=== PATIENT | male | born 1965 | race African-American/Black ===

== ENCOUNTER 2018-10-10 19:34 | Emergency (ER) | payer OTHER ==
--- NOTE | 2018-10-10 21:14 | ER Document Report ---
ED Medical Screen (RME) - General Chief Complaint: Heat Exposure Stated Complaint: SYNCOPE Time Seen by Provider: 10/10/18 21:05 Mode of Arrival: Wheelchair Information source: Patient Notes: 53-year-old male presented to ED after he passed out at work. states that he called her about 545 states that he really felt bad that he she needed to come pick him up. She states about 620 boss called and told her that the patient passed out he was extremely sweaty and shaking with his eyes rolled back up in his head. She states she went over and got him and brought him to the emergency room. She states about a month or so ago he did a similar thing except for he did not pass out he just had a limp vacantly at the loss in the bus did not know what was going on and then he cleared up. Patient is alert oriented respirations regular and unlabored speaking in full sentences. I did consult Dr. Barber stated patient needed labs x-rays EKG and he would be seen by a provider in the back. I have greeted and performed a rapid initial assessment of this patient. A comprehensive ED assessment and evaluation of the patient, analysis of test results and completion of medical decision making process will be conducted by an additional ED providers. Dictation of this chart was performed using voice recognition software; therefore, there may be some unintended grammatical errors. TRAVEL OUTSIDE OF THE [place] IN LAST 30 DAYS: No - Related Data Allergies/Adverse Reactions: No Known Allergies Allergy (Unverified 10/10/18 21:01) Past Medical History - Social History Family history: CVA, DM, Hypertension - Past Medical History Cardiac Medical History: Reports: Hx Hypertension Renal/ Medical History: Denies: Hx Peritoneal Dialysis GI Medical History: Reports: Hx Diverticulitis Physical Exam - Vital signs Vitals: Temp Pulse Resp BP Pulse Ox 98.3 F 97 20 155/99 H 95 10/10/18 19:44 10/10/18 19:44 10/10/18 19:44 10/10/18 19:44 10/10/18 19:44 Course - Vital Signs Vital signs: Temp Pulse Resp BP Pulse Ox 98.3 F 97 20 155/99 H 95 10/10/18 19:44 10/10/18 19:44 10/10/18 19:44 10/10/18 19:44 10/10/18 19:44
[2018-10-10 21:31] LABS: APPEARANCE,URINE CLEAR; BILIRUBIN,URINE NEGATIVE (NEGATIVE); COLOR,URINE YELLOW; GLUCOSE, URINE >=500 mg/dL (NEGATIVE); KETONES,URINE TRACE mg/dL (NEGATIVE); LEUKOCYTE ESTERASE,URINE NEGATIVE (NEGATIVE); NITRITE,URINE NEGATIVE (NEGATIVE); PROTEIN,URINE 30 mg/dL (NEGATIVE); URINE SPECIFIC GRAVITY 1.022; UROBILINOGEN,URINE NEGATIVE mg/dL (<2.0)
--- NOTE | 2018-10-10 22:05 | RADIOLOGY REPORT (SQ) ---
EXAM DESCRIPTION: [facility]: XR CHEST 2 VIEWS Views: 2 CLINICAL HISTORY: 53 years Male, syncope episode COMPARISON: 12/06/2015 FINDINGS: The lungs are clear. No pneumothorax or significant pleural effusion. Cardiomediastinal silhouette is within normal limits. Bony structures are unremarkable for age. IMPRESSION: 1. No acute cardiothoracic abnormality.
[2018-10-10 23:45] LABS: ABSOLUTE BASOPHILS # (AUTO) 0.1 10^3/uL (0.0-0.2); ABSOLUTE EOSINOPHILS # (AUTO) 0.1 10^3/uL (0.0-0.6); ABSOLUTE LYMPHOCYTES (AUTO) 1.6 10^3/uL (0.5-4.7); ABSOLUTE MONOCYTES (AUTO) 0.6 10^3/uL (0.1-1.4); EOSINOPHILS % (AUTO) 0.5 % (0-6); HEMATOCRIT 46.7 % (37.9-51.0); HEMOGLOBIN 14.9 g/dL (13.5-17.0); MEAN CORPUSCULAR HEMOGLOBIN 25.9 pg (27.0-33.4); MEAN CORPUSCULAR VOLUME 81 fl (80-97); MONOCYTES % (AUTO) 5.4 % (3-13); PLATELET COUNT 240 10^3/uL (150-450); RED BLOOD COUNT 5.77 10^6/uL (4.35-5.55); RED CELL DISTRIBUTION WIDTH 13.3 % (11.5-14.0); SEGMENTED NEUTROPHILS % (AUTO) 79.1 % (42-78); TOTAL CELLS COUNTED % (AUTO) 100 %; WHITE BLOOD COUNT 11.4 10^3/uL (4.0-10.5)
[2018-10-11 00:03] LABS: ALANINE AMINOTRANSFERASE 19 U/L (21-72); ALKALINE PHOSPHATASE 119 U/L (38-126); ANION GAP 13 (5-19); ASPARTATE AMINO TRANSFERASE 15 U/L (17-59); BILIRUBIN,DIRECT 0.3 mg/dL (0.0-0.4); BILIRUBIN,TOTAL 0.6 mg/dL (0.2-1.3); BLOOD UREA NITROGEN 19 mg/dL (7-20); CALCIUM 9.3 mg/dL (8.4-10.2); CARBON DIOXIDE 26 mmol/L (22-30); CHLORIDE 96 mmol/L (98-107); GLUCOSE 327 mg/dL (75-110); POTASSIUM 4.3 mmol/L (3.6-5.0); TOTAL PROTEIN 6.7 g/dL (6.3-8.2)
[2018-10-11 00:17] LABS: CREATINE KINASE MB < 0.22 ng/mL (<4.55); TROPONIN I < 0.012 ng/mL
--- NOTE | 2018-10-11 02:51 | ER Document Report ---
ED General - General Chief Complaint: Heat Exposure Stated Complaint: SYNCOPE Time Seen by Provider: 10/10/18 21:05 Mode of Arrival: Wheelchair Notes: Patient is a 53-year-old male with past medical history of essential hypertension who presents after syncopal episode while at work. 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 States that the fumes made him feel increasingly lightheaded. Contacted his and stated that he did not feel well. States that he tried to sit down and felt progressively worse. States that he stood up to try to walk outside and apparently lost consciousness. Did not sustain any injury during his syncopal episode. Was subsequent brought to the emergency department by his . Patient has had a history of once previous syncopal episode in the past under similar circumstances. At the time of my evaluation he denies any complaints. States that he believes that this was secondary to dehydration and exposure to paint fumes. States that his symptoms have resolved after lying down and drinking plenty of fluid. Denies any chest pain, shortness of breath, focal weakness, numbness or confusion either before or after the episode. Has not seen his primary care physician regarding today's concerns. TRAVEL OUTSIDE OF THE [place] IN LAST 30 DAYS: No - Related Data Allergies/Adverse Reactions: No Known Allergies Allergy (Unverified 10/10/18 21:01) Past Medical History - General Information source: Patient - Social History Smoking Status: Never Smoker Frequency of alcohol use: None Drug Abuse: None Lives with: Spouse/Significant other Family History: Reviewed & Not Pertinent Patient has suicidal ideation: No Patient has homicidal ideation: No - Past Medical History Cardiac Medical History: Reports: Hx Hypertension Renal/ Medical History: Denies: Hx Peritoneal Dialysis GI Medical History: Reports: Hx Diverticulitis Review of Systems - Review of Systems Notes: Constitutional: Negative for fever. HENT: Negative for sore throat. Eyes: Negative for visual changes. Cardiovascular: Negative for chest pain. Respiratory: Negative for shortness of breath. Gastrointestinal: Negative for abdominal pain, vomiting or diarrhea. Genitourinary: Negative for dysuria. Musculoskeletal: Negative for back pain. Skin: Negative for rash. Neurological: Negative for headaches, weakness or numbness. 10 point ROS negative except as marked above and in HPI. Physical Exam - Vital signs Vitals: Temp Pulse Resp BP Pulse Ox 98.3 F 97 20 155/99 H 95 10/10/18 19:44 10/10/18 19:44 10/10/18 19:44 10/10/18 19:44 10/10/18 19:44 Interpretation: Hypertensive Notes: PHYSICAL EXAMINATION: GENERAL: Well-appearing, well-nourished and in no acute distress. HEAD: Atraumatic, normocephalic. EYES: Pupils equal round and reactive to light, extraocular movements intact, sclera anicteric, conjunctiva are normal. ENT: nares patent, oropharynx clear without exudates. Moist mucous membranes. NECK: Normal range of motion, supple without lymphadenopathy LUNGS: Breath sounds clear to auscultation bilaterally and equal. No wheezes rales or rhonchi. HEART: Regular rate and rhythm without murmurs ABDOMEN: Soft, morbidly obese abdomen, nontender, normoactive bowel sounds. No guarding, no rebound. No masses appreciated. EXTREMITIES: Normal range of motion, no pitting or edema. No cyanosis. NEUROLOGICAL: No focal neurological deficits. Moves all extremities spontaneously and on command. PSYCH: Normal mood, normal affect. SKIN: Warm, Dry, normal turgor, no rashes or lesions noted. Course - Re-evaluation Re-evalutation: 10/11/18 02:49 Presentation of syncope of unclear etiology. Patient was however working in the heat and exposed to paint fumes prior to the onset of his symptoms. Patient normotensive, alert, without focal neurologic deficits at time of arrival. Denies syncope was during exertion. No preceding symptoms of palpitations, chest pain, or shortness of breath. Patient asymptomatic at time of arrival. EKG is without evidence of HCOM, right heart strain, ST changes to suggest ischemia, prolong QTc, delta wave, epsilon wave, or Brugada syndrome. Patient denies any family history of sudden cardiac , personal history of of structural heart disease. Patient denies any symptoms to suggest an acute PE, [place], TAD, SAH, seizure, or acute GI bleed as the etiology of their syncope today. On exam, no murmurs to suggest critical aortic stenosis as possible etiology. Based on overall clinical history, exam findings, vitals, and patients appearance, I feel it is safe for patient to be discharged home at this time with close outpatient follow-up and strict return precautions. Patient is in agreement with this plan, has verbalized indications for return to ED, and questions have been answered. - Vital Signs Vital signs: Temp Pulse Resp BP Pulse Ox 98.5 F 76 18 155/92 H 100 10/11/18 03:10 10/11/18 03:10 10/11/18 03:10 10/11/18 03:10 10/11/18 03:10 - Laboratory Result Diagrams: 10/10/18 23:30 10/10/18 23:30 Laboratory results interpreted by me: 10/10/18 10/10/18 10/10/18 21:08 23:30 23:30 WBC 11.4 H RBC 5.77 H MCH 25.9 L Seg Neutrophils % 79.1 H Absolute Neutrophils 9.0 H Sodium 135.0 L Chloride 96 L Glucose 327 H AST 15 L ALT 19 L Urine Protein 30 H Urine Glucose (UA) >=500 H Urine Ketones TRACE H - Diagnostic Test Radiology reviewed: Image reviewed, Reports reviewed Radiology results interpreted by me: 10/11/18 02:49 Chest x-ray: No acute infiltrate or pneumothorax - EKG Interpretation by Me Additional EKG results interpreted by me: 10/11/18 02:50 Sinus rhythm, rate 94. No ST elevations or depressions. QTC is 441. Discharge - Discharge Clinical Impression: Dehydration Syncope Qualifiers: Syncope type: unspecified Qualified Code(s): R55 - Syncope and collapse Condition: Good Disposition: HOME, SELF-CARE Additional Instructions: You were seen today after an episode of passing out. Your EKG here is normal. At this time, we do not feel that your episode of passing out was from any life-threatening cause. Please drink plenty of fluids over the next several days. Return to emergency department if you have any further episodes of syncope, headache, weakness, numbness, chest pain, or shortness of breath. Please follow up closely with your primary care physician.
[2018-10-11 03:11] VITALS: BP 155/92
--- NOTE | 2018-10-11 22:16 | EKG REPORT ---
SEVERITY:- OTHERWISE NORMAL ECG - SINUS RHYTHM BORDERLINE LEFT AXIS DEVIATION : Confirmed by: Chantel Catherine MD 11-Oct-2018 22:15:14
== END 2018-10-11 03:11 | disposition home or self-care (01) ==
LOC: ER 19:34
DX: R55 Syncope and collapse (principal); E86.0 Dehydration; X30.XXXA Exposure to excessive natural heat, initial encounter; Y93.H9 Activity, other involving exterior property and land maintenance, building and construction; Y99.0 Civilian activity done for income or pay; I10 Essential (primary) hypertension
CPT/HCPCS: 36415; 71046; 80053; 81001; 82553; 84484; 85025; 93005; 93010; 99284

== ENCOUNTER 2019-02-11 15:21 | Emergency (ER) | payer SELFPAY ==
--- NOTE | 2019-02-11 15:41 | ER Document Report ---
ED Medical Screen (RME) - General Chief Complaint: Near Syncope Stated Complaint: DIZZINESS Time Seen by Provider: 02/11/19 15:38 Mode of Arrival: Ambulatory Information source: Patient Notes: Patient presents complaining of an episode of dizziness and not feeling right. Patient states that he sat down and rested his head back and went he opened his eyes he had blurred vision that lasted for about 2 minutes and then resolved. Patient denies any chest pain or shortness of breath. Patient states that he was compliant with taking his blood pressure medication today. Patient states that his doctor is having him monitor his blood sugar and he will see him later this week to determine if he has diabetes. I have greeted and performed a rapid initial assessment of this patient. A comprehensive ED assessment and evaluation of the patient, analysis of test results and completion of the medical decision making process will be conducted by additional ED providers. TRAVEL OUTSIDE OF THE [place] IN LAST 30 DAYS: No - Related Data Allergies/Adverse Reactions: No Known Allergies Allergy (Verified 02/11/19 15:31) Past Medical History - Social History Family history: CVA, DM, Hypertension - Past Medical History Cardiac Medical History: Reports: Hx Hypertension Renal/ Medical History: Denies: Hx Peritoneal Dialysis GI Medical History: Reports: Hx Diverticulitis Physical Exam - Vital signs Vitals: Temp Pulse Resp BP Pulse Ox 98.0 F 84 18 207/93 H 97 02/11/19 15:02/11/19 15:02/11/19 15:02/11/19 15:02/11/19 15:29 - Cardiovascular Rhythm: Regular Heart sounds: S1 appreciated, S2 appreciated Murmur: No Course - Vital Signs Vital signs: Temp Pulse Resp BP Pulse Ox 98.0 F 84 18 207/93 H 97 02/11/19 15:02/11/19 15:29 02/11/19 15:02/11/19 15:02/11/19 15:29
--- NOTE | 2019-02-11 16:12 | RADIOLOGY REPORT (SQ) ---
EXAM DESCRIPTION: CHEST 2 VIEWS COMPLETED DATE/TIME: 02/11/2019 3:58 pm REASON FOR STUDY: dizziness COMPARISON: 10/10/2018, 12/06/2015 EXAM PARAMETERS: NUMBER OF VIEWS: two views TECHNIQUE: Digital Frontal and Lateral radiographic views of the chest acquired. RADIATION DOSE: NA LIMITATIONS: none FINDINGS: LUNGS AND PLEURA: No opacities, masses or pneumothorax. No pleural effusion. MEDIASTINUM AND HILAR STRUCTURES: No masses or contour abnormalities. HEART AND VASCULAR STRUCTURES: Heart normal size. No evidence for failure. BONES: No acute findings. HARDWARE: None in the chest. OTHER: No other significant finding. IMPRESSION: NO ACUTE RADIOGRAPHIC FINDING IN THE CHEST. TECHNICAL DOCUMENTATION: JOB ID: [id number] [employer]- All Rights Reserved Reading location - IP/workstation name: [email or web address]
[2019-02-11 16:56] LABS: ABSOLUTE BASOPHILS # (AUTO) 0.1 10^3/uL (0.0-0.2); ABSOLUTE EOSINOPHILS # (AUTO) 0.2 10^3/uL (0.0-0.6); ABSOLUTE LYMPHOCYTES (AUTO) 1.9 10^3/uL (0.5-4.7); ABSOLUTE MONOCYTES (AUTO) 0.6 10^3/uL (0.1-1.4); ABSOLUTE NEUT (AUTO) 7.1 10^3/uL (1.7-8.2); BASOPHILS % (AUTO) 0.8 % (0-2); EOSINOPHILS % (AUTO) 1.6 % (0-6); HEMATOCRIT 43.2 % (37.9-51.0); HEMOGLOBIN 14.1 g/dL (13.5-17.0); LYMPHOCYTES % (AUTO) 19.3 % (13-45); MEAN CORPUSCULAR HEMOGLOBIN 27.1 pg (27.0-33.4); MEAN CORPUSCULAR HGB CONC 32.7 g/dL (32.0-36.0); MEAN CORPUSCULAR VOLUME 83 fl (80-97); MONOCYTES % (AUTO) 6.5 % (3-13); PLATELET COUNT 231 10^3/uL (150-450); RED BLOOD COUNT 5.21 10^6/uL (4.35-5.55); RED CELL DISTRIBUTION WIDTH 13.4 % (11.5-14.0); SEGMENTED NEUTROPHILS % (AUTO) 71.8 % (42-78); TOTAL CELLS COUNTED % (AUTO) 100 %; WHITE BLOOD COUNT 9.9 10^3/uL (4.0-10.5)
[2019-02-11 17:01] LABS: APPEARANCE,URINE CLEAR; BILIRUBIN,URINE NEGATIVE (NEGATIVE); COLOR,URINE YELLOW; GLUCOSE, URINE >=500 mg/dL (NEGATIVE); KETONES,URINE NEGATIVE (NEGATIVE); LEUKOCYTE ESTERASE,URINE NEGATIVE (NEGATIVE); NITRITE,URINE NEGATIVE (NEGATIVE); PROTEIN,URINE 30 mg/dL (NEGATIVE); URINE SPECIFIC GRAVITY 1.021
[2019-02-11 17:13] LABS: ALBUMIN 3.9 g/dL (3.5-5.0); ALKALINE PHOSPHATASE 94 U/L (38-126); ANION GAP 8 (5-19); ASPARTATE AMINO TRANSFERASE 20 U/L (17-59); BILIRUBIN,DIRECT 0.2 mg/dL (0.0-0.4); BILIRUBIN,TOTAL 0.5 mg/dL (0.2-1.3); BLOOD UREA NITROGEN 16 mg/dL (7-20); CALCIUM 9.2 mg/dL (8.4-10.2); CARBON DIOXIDE 30 mmol/L (22-30); CHLORIDE 100 mmol/L (98-107); GLUCOSE 226 mg/dL (75-110); POTASSIUM 4.5 mmol/L (3.6-5.0); TOTAL PROTEIN 6.6 g/dL (6.3-8.2)
[2019-02-11] MEDS ORDERED: NORMAL SALINE 500 ML IV ONE (20:55)
[2019-02-11] MEDS ORDERED: MECLIZINE HCL 25 MG TABLET PO ONE (20:55)
--- NOTE | 2019-02-11 21:13 | ER Document Report ---
ED Dizziness/Weakness - General Chief Complaint: Near Syncope Stated Complaint: DIZZINESS Time Seen by Provider: 02/11/19 15:38 Primary Care Provider: MARQUES THRASHER MD [Primary Care Provider] - Follow up as needed Mode of Arrival: Ambulatory TRAVEL OUTSIDE OF THE [place] IN LAST 30 DAYS: No - HPI Notes: This is a 53-year-old gentleman who presents today with complaint of sudden onset dizziness, described as a spinning sensation that occurred today. Patient states he had several episodes that were all very brief, related to movement of his head. Associated symptoms included some nausea but no vomiting. Patient notes that had some recent URI symptoms. He denies any visual changes. He denies any headache. He denies any weakness or speech changes. Patient states that at one point when he had an episode he felt so dizzy that he felt like he w as going to pass out. He denies any chest pain or other cardiopulmonary symptoms. Describes his symptoms as moderate. Symptoms are worse with movement of his head. He also noted his blood pressure was elevated today. His blood pressure is usually in the 140s. - Related Data Allergies/Adverse Reactions: No Known Allergies Allergy (Verified 02/11/19 15:31) Past Medical History - General Information source: Patient - Social History Smoking Status: Never Smoker Family History: Reviewed & Not Pertinent Patient has suicidal ideation: No Patient has homicidal ideation: No - Past Medical History Cardiac Medical History: Reports: Hx Hypertension Renal/ Medical History: Denies: Hx Peritoneal Dialysis GI Medical History: Reports: Hx Diverticulitis Review of Systems - Review of Systems Constitutional: denies: Fever, Malaise, Weakness Cardiovascular: denies: Chest pain, Palpitations, Heart racing Gastrointestinal: denies: Abdominal pain, Diarrhea, Vomiting Neurological/Psychological: denies: Confusion, Weakness, Headaches, Speech imp airment, Numbness -: Yes All other systems reviewed and negative Physical Exam - Vital signs Vitals: Temp Pulse Resp BP Pulse Ox 98.0 F 84 18 207/93 H 97 02/11/19 15:29 02/11/19 15:29 02/11/19 15:29 02/11/19 15:02/11/19 15:29 - General General appearance: Appears well, Alert - HEENT Head: Normocephalic, Atraumatic Eyes: Normal Pupils: PERRL Tympanic membrane: Normal - Respiratory Respiratory status: No respiratory distress Chest status: Nontender Breath sounds: Normal Chest palpation: Normal - Cardiovascular Rhythm: Regular Heart sounds: Normal auscultation Murmur: No - Abdominal Inspection: Normal Distension: No distension Bowel sounds: Normal Tenderness: Nontender Organomegaly: No organomegaly - Extremities General upper extremity: Normal inspection, Nontender, Normal color, Normal ROM, Normal temperature General lower extremity: Normal inspection, Nontender, Normal color, Normal ROM, Normal temperature, Normal weight bearing. No: Natanael's sign - Neurological Neuro grossly intact: Yes Cognition: Normal Orientation: AAOx4 - There is no motor, sensory or cerebellar deficits. There is reproducible vertigo and fatigable horizontal nystagmus. Nonfocal neurologic exam. GCS is 15. NIH stroke score is 0. Mir Coma Scale Eye Opening: Spontaneous Mir Coma Scale Verbal: Oriented Mir Coma Scale Motor: Obeys Commands Bells Coma Scale Total: 15 Speech: Normal Motor strength normal: LUE, RUE, LLE, RLE Sensory: Normal - Psychological Associated symptoms: Normal affect, Normal mood - Skin Skin Temperature: Warm Skin Moisture: Dry Skin Color: Normal Course - Re-evaluation Re-evalutation: 02/11/19 21:13 Clinical picture suggestive of benign positional vertigo. Differential diagnosis includes anemia versus electrolyte abnormality. Given elevated blood pressure, will get head CT. There is no clinical suspicion for acute CVA. EKG shows normal sinus rhythm at 77 bpm. Normal axis. Normal intervals. No acute injury pattern. 02/11/19 22:15 Patient reevaluated. He feels much better. Blood pressure improved significantly. 02/12/19 00:07 Patient reevaluated. Patient is doing well. Asymptomatic. Labs and CT reviewed and discussed. BP improved. He is stable for discharge. Follow-up instructions given to patient. 02/12/19 00:10 - Vital Signs Vital signs: Temp Pulse Resp BP Pulse Ox 98.0 F 84 15 191/115 H 98 02/11/19 15:29 02/11/19 15:29 02/11/19 21:14 02/11/19 21:14 02/11/19 21:14 - Laboratory Result Diagrams: 02/11/19 16:38 02/11/19 16:38 Laboratory results interpreted by me: 02/11/19 02/11/19 02/11/19 16:38 16:38 16:38 Glucose 226 H Hemoglobin A1c % 9.9 H Urine Protein 30 H Urine Glucose (UA) >=500 H Urine Urobilinogen 4.0 H Discharge - Discharge Clinical Impression: Vertigo Hypertension Qualifiers: Hypertension type: essential hypertension Qualified Code(s): I10 - Essential (primary) hypertension Disposition: HOME, SELF-CARE Instructions: Vertigo ([facility]), High Blood Pressure ([facility]) Prescriptions: Meclizine HCl [Antivert 25 mg Tablet] 25 mg PO TID PRN #21 tablet PRN Reason: Forms: Elevated Blood Pressure Referrals: MARQUES THRASHER MD [Primary Care Provider] - Follow up as needed
[2019-02-11] MEDS ORDERED: LABETALOL HCL INJ 20 MG/4 ML DISP.SYRIN IV ONE (21:24)
--- NOTE | 2019-02-11 21:43 | RADIOLOGY REPORT (SQ) ---
EXAM DESCRIPTION: CT HEAD WITHOUT IV CONTRAST COMPLETED DATE/TME: 02/11/2019 20:54 CLINICAL HISTORY: 53 years, Male, Dizziness/HTN This exam was performed according to our departmental dose-optimization program which includes automated exposure control, adjustment of the mA and/or kVp according to patient size and/or use of iterative reconstruction technique where applicable. FINDINGS: No acute intracranial hemorrhage, mass effect or midline shift. No extra-axial fluid collections. Ventricles and subarachnoid spaces are preserved. Pham-white matter differentiation is preserved. Visualized paranasal sinuses demonstrate a 2.5 cm left maxillary sinus polyp or retention cyst. And the mastoid air cells are clear. The skull is intact. IMPRESSION: No acute intracranial hemorrhage.
[2019-02-12 00:28] VITALS: BP 165/86
--- NOTE | 2019-02-12 00:48 | EKG REPORT ---
SEVERITY:- NORMAL ECG - SINUS RHYTHM : Confirmed by: Bonnie Krishnan 12-Feb-2019 00:48:33
== END 2019-02-12 00:27 | disposition home or self-care (01) ==
LOC: ER 15:21
DX: R42 Dizziness and giddiness (principal); I10 Essential (primary) hypertension
CPT/HCPCS: 93005; 36415; 85025; 80053; 81001; 84484; 83036; 71046; 70450; 93010; J3490; J7040; 96361; 96374; 99284

== ENCOUNTER 2020-02-26 06:52 | Emergency (ER) | payer SELFPAY ==
[2020-02-26 08:03] LABS: ABSOLUTE EOSINOPHILS # (AUTO) 0.1 10^3/uL (0.0-0.6); ABSOLUTE LYMPHOCYTES (AUTO) 1.6 10^3/uL (0.5-4.7); ABSOLUTE MONOCYTES (AUTO) 0.4 10^3/uL (0.1-1.4); ABSOLUTE NEUT (AUTO) 6.4 10^3/uL (1.7-8.2); BASOPHILS % (AUTO) 0.5 % (0-2); EOSINOPHILS % (AUTO) 1.3 % (0-6); HEMATOCRIT 50.2 % (37.9-51.0); HEMOGLOBIN 16.7 g/dL (13.5-17.0); LYMPHOCYTES % (AUTO) 18.2 % (13-45); MEAN CORPUSCULAR HEMOGLOBIN 27.3 pg (27.0-33.4); MEAN CORPUSCULAR HGB CONC 33.4 g/dL (32.0-36.0); MEAN CORPUSCULAR VOLUME 82 fl (80-97); PLATELET COUNT 199 10^3/uL (150-450); RED BLOOD COUNT 6.14 10^6/uL (4.35-5.55); TOTAL CELLS COUNTED % (AUTO) 100 %; WHITE BLOOD COUNT 8.6 10^3/uL (4.0-10.5)
[2020-02-26 08:15] LABS: ALBUMIN 4.2 g/dL (3.5-5.0); ALKALINE PHOSPHATASE 136 U/L (38-126); ANION GAP 11 (5-19); ASPARTATE AMINO TRANSFERASE 18 U/L (17-59); BILIRUBIN,DIRECT 0.3 mg/dL (0.0-0.4); BILIRUBIN,TOTAL 0.7 mg/dL (0.2-1.3); BLOOD UREA NITROGEN 15 mg/dL (7-20); CALCIUM 9.3 mg/dL (8.4-10.2); CARBON DIOXIDE 25 mmol/L (22-30); CHLORIDE 101 mmol/L (98-107); CREATINE KINASE 33 U/L (55-170); GLUCOSE 300 mg/dL (75-110); POTASSIUM 4.2 mmol/L (3.6-5.0); TOTAL PROTEIN 7.2 g/dL (6.3-8.2)
[2020-02-26 08:41] LABS: CREATINE KINASE MB 0.73 ng/mL (<4.55)
[2020-02-26 08:45] LABS: TROPONIN I < 0.012 ng/mL
[2020-02-26] MEDS ORDERED: NORMAL SALINE 1000 ML 1,000 ML IV ONE (08:52)
[2020-02-26] MEDS ORDERED: HYDRALAZINE HCL INJ/PF 20 MG/1 ML SDV IV ONE (08:52)
--- NOTE | 2020-02-26 10:25 | ER Document Report ---
Entered by EMERITA STONE SCRIBE 02/26/20 0851 Acting as scribe for:RODO VALVERDE MD ED General - General Chief Complaint: General Weakness Stated Complaint: WEAK/SWEATING/CHILLS Time Seen by Provider: 02/26/20 08:22 Primary Care Provider: MARQUES THRASHER MD [Primary Care Provider] - Follow up in 1 week Mode of Arrival: Ambulatory Information source: Patient Notes: This 54 year old male patient presents to the emergency department today with complaints of feeling "weak and off-balance" on his feet today prior to arrival. He reports that on last week he had a similar episode where he felt generally weak and unsteady on his feet. He has been diagnosed with vertigo in the past so he started taking meclizine. Patient states besides that episode on he was fine through the weekend until this morning when he was getting out of bed. Patient states on he was having double vision after standing up and it seemed to subside after sitting down. Patient states he got diaphoretic this morning after getting out of bed and then his feeling "weak and off-balance" began. TRAVEL OUTSIDE OF THE [place] IN LAST 30 DAYS: No - Related Data Allergies/Adverse Reactions: No Known Allergies Allergy (Verified 02/26/20 07:13) Home Medications: LISINIPRIL Past Medical History - General Information source: Patient - Social History Smoking Status: Never Smoker Cigarette use (# per day): No Frequency of alcohol use: None Drug Abuse: None Lives with: Family Family History: Reviewed & Not Pertinent - Past Medical History Cardiac Medical History: Reports: Hx Hypertension GI Medical History: Reports: Hx Diverticulitis Surgical Hx: Negative Review of Systems - Review of Systems Constitutional: See HPI, Diaphoresis, Weakness EENT: No symptoms reported Cardiovascular: See HPI, Dizziness, Lightheaded Respiratory: No symptoms reported Gastrointestinal: No symptoms reported Genitourinary: No symptoms reported Male Genitourinary: No symptoms reported Musculoskeletal: No symptoms reported Skin: No symptoms reported Hematologic/Lymphatic: No symptoms reported Neurological/Psychological: No symptoms reported -: Yes All other systems reviewed and negative Physical Exam - Vital signs Vitals: Temp Pulse Resp BP Pulse Ox 97.5 F 81 16 229/127 H 96 02/26/20 07:12 02/26/20 07:12 02/26/20 07:12 02/26/20 07:12 02/26/20 07:12 - Notes Notes: Physical Exam: General: Alert, appears well. HEENT: Normocephalic. Atraumatic. PERRL. Extraocular movements intact. Oropharynx clear. No lateral gaze nystagmus. Neck: Supple. Non-tender. Respiratory: No respiratory distress. Clear and equal breath sounds bilaterally. Cardiovascular: Regular rate and rhythm. Abdominal: Obese. Non-tender. No distension. Normal Bowel Sounds. Back: No gross abnormalities. Extremities: Moves all four extremities. Upper extremities: Normal inspection. Normal ROM. Lower extremities: Normal inspection. No edema. Normal ROM. Neurological: Normal cognition. AAOx4. Normal speech. Psychological: Normal affect. Normal Mood. Skin: Warm. Dry. Normal color. Course - Re-evaluation Re-evalutation: 02/26/20 12:16 Patient's initial blood pressure was 229/127. He was given hydralazine 20 mg IV and the pressure is now come down to 170/79. He states he is feeling much be tter at this time. We had a long discussion about blood pressure medications and diabetes management. I then talked with Dr. Thrasher who had been his primary care previously who is agreeable to seeing him in the office next week for follow-up. We will start him on metformin and add amlodipine to the lisinopril he is taking. He confirms that he is taking lisinopril 20 mg daily. - Vital Signs Vital signs: Temp Pulse Resp BP Pulse Ox 97.5 F 81 15 170/78 H 96 02/26/20 07:12 02/26/20 07:12 02/26/20 11:01 02/26/20 11:01 02/26/20 11:01 - Laboratory Result Diagrams: 02/26/20 07:15 02/26/20 07:15 Laboratory results interpreted by me: 02/26/20 02/26/20 02/26/20 07:15 07:15 07:15 RBC 6.14 H Glucose 300 H Hemoglobin A1c % 10.0 H Alkaline Phosphatase 136 H Creatine Kinase 33 L Urine Protein Urine Glucose (UA) Urine Ketones 02/26/20 11:23 RBC Glucose Hemoglobin A1c % Alkaline Phosphatase Creatine Kinase Urine Protein 30 H Urine Glucose (UA) >=500 H Urine Ketones 20 H - EKG Interpretation by Me EKG shows normal: Sinus rhythm, [place], Intervals, QRS Complexes, ST-T Waves Rate: Normal - 75 Rhythm: NSR [place]/QRS: Left axis deviation P Waves: LAE When compared to previous EKG there are: No significant change - Consults Dr. Thrasher Time consulted: 12:10 Consulted provider: follow-up in office - Next Tuesday or Tuesday. Discharge - Discharge Clinical Impression: Hypertensive urgency Diabetes Qualifiers: Diabetes mellitus type: type 2 Diabetes mellitus jail insulin use: without jail use Diabetes mellitus complication status: without complication Qualified Code(s): E11.9 - Type 2 diabetes mellitus without complications Condition: Stable Disposition: HOME, SELF-CARE Additional Instructions: Be sure you take your lisinopril every day. I will give you another prescription for so you do not run out before you see Dr. Thrasher. Add the amlodipine and Metformin as prescribed. Go on a low calorie diet and get plenty of exercise. Check your blood pressure daily and check your blood sugars. Follow-up with Dr. Thrasher Tuesday or Tuesday next week, call for an appointment. RETURN TO THE EMERGENCY ROOM IF ANY NEW OR WORSENING SYMPTOMS. Prescriptions: Lisinopril 20 mg PO DAILY #30 tablet Metformin HCl 850 mg PO BID #60 tablet Amlodipine Besylate [Norvasc 5 mg Tablet] 5 mg PO DAILY #30 tablet Referrals: MARQUES THRASHER MD [Primary Care Provider] - Follow up in 1 week I personally performed the services described in the documentation, reviewed and edited the documentation which was dictated to the scribe in my presence, and it accurately records my words and actions.
[2020-02-26 11:42] LABS: APPEARANCE,URINE CLEAR; BILIRUBIN,URINE NEGATIVE (NEGATIVE); COLOR,URINE STRAW; GLUCOSE, URINE >=500 mg/dL (NEGATIVE); KETONES,URINE 20 mg/dL (NEGATIVE); LEUKOCYTE ESTERASE,URINE NEGATIVE (NEGATIVE); NITRITE,URINE NEGATIVE (NEGATIVE); PROTEIN,URINE 30 mg/dL (NEGATIVE); URINE SPECIFIC GRAVITY 1.011; UROBILINOGEN,URINE NEGATIVE mg/dL (<2.0)
[2020-02-26 13:44] VITALS: BP 170/87
--- NOTE | 2020-02-26 19:47 | EKG REPORT ---
SEVERITY:- ABNORMAL ECG - SINUS RHYTHM PROBABLE LEFT ATRIAL ABNORMALITY BORDERLINE LEFT AXIS DEVIATION CONSIDER ANTEROSEPTAL INFARCT : Confirmed by: Bonnie Krishnan 26-Feb-2020 19:46:39
== END 2020-02-26 13:31 | disposition home or self-care (01) ==
LOC: ER 06:52
DX: I16.0 Hypertensive urgency (principal); E11.9 Type 2 diabetes mellitus without complications; R53.1 Weakness; R61 Generalized hyperhidrosis; R42 Dizziness and giddiness; Z79.899 Other long term (current) drug therapy
CPT/HCPCS: 93005; 99284; 96361; 96374; 36415; 82553; 82550; 85025; 80053; 81001; 84484; 83036; 93010; J0360; J7030

== ENCOUNTER 2020-02-27 14:10 | Emergency (ER) | payer SELFPAY ==
[2020-02-27] MEDS ORDERED: ONDANSETRON 4 MG TAB.RAPDIS PO ONE ×2 (15:46→23:06)
--- NOTE | 2020-02-27 15:56 | ER Document Report ---
ED Medical Screen (RME) - General Chief Complaint: Vomiting Stated Complaint: VOMITING/WEAKNESS Time Seen by Provider: 02/27/20 15:41 Primary Care Provider: MARQUES THRASHER MD [Primary Care Provider] - Follow up as needed Mode of Arrival: Wheelchair Information source: Patient Notes: HPI; 54 y/o male presents to the emergency room with vomiting and nausea this am, also complaining of generalized weakness, for two days. No meds for symptoms. Decreased appetite. Denies any chest pain, shortness of breath, no recent travel, no Covid 19 exposure. Patient also states he was recently diagnosed as a diabetic and was felt started medications today with dinner. States he only took 1 of his blood pressure medications this morning but then immediately vomited. PE: Alert and oriented x3. Mild distress noted. Lungs: Clear to auscultation without rales, rhonchi, wheezes. Heart: Regular rate rhythm without murmurs, rubs, gallops. I have greeted and performed a rapid initial assessment of this patient. A comprehensive ED assessment and evaluation of the patient, analysis of test results and completion of the medical decision making process will be conducted by additional ED providers. I have specifically instructed the patient or family members with the patient to immediately return to any nursing staff should anything change in the patient's condition or with their chief complaint. TRAVEL OUTSIDE OF THE [place] IN LAST 30 DAYS: No - Related Data Allergies/Adverse Reactions: No Known Allergies Allergy (Verified 02/26/20 07:13) Past Medical History - Social History Chew tobacco use (# tins/day): No Drug Abuse: None Family history: CVA, DM, Hypertension - Past Medical History Cardiac Medical History: Reports: Hx Hypertension Renal/ Medical History: Denies: Hx Peritoneal Dialysis GI Medical History: Reports: Hx Diverticulitis Physical Exam - Vital signs Vitals: Temp Pulse Resp BP Pulse Ox 97.8 F 87 20 203/117 H 95 02/27/20 14:17 02/27/20 14:17 02/27/20 14:17 02/27/20 14:17 02/27/20 14:17 Course - Vital Signs Vital signs: Temp Pulse Resp BP Pulse Ox 97.8 F 88 18 215/111 H 97 02/27/20 14:17 02/27/20 15:43 02/27/20 15:43 02/27/20 15:43 02/27/20 15:43 Doctor's Discharge - Discharge Referrals: MARQUES THRASHER MD [Primary Care Provider] - Follow up as needed
[2020-02-27 17:04] LABS: ABSOLUTE BASOPHILS # (AUTO) 0.1 10^3/uL (0.0-0.2); ABSOLUTE LYMPHOCYTES (AUTO) 0.9 10^3/uL (0.5-4.7); ABSOLUTE MONOCYTES (AUTO) 0.4 10^3/uL (0.1-1.4); ABSOLUTE NEUT (AUTO) 12.6 10^3/uL (1.7-8.2); BASOPHILS % (AUTO) 0.4 % (0-2); EOSINOPHILS % (AUTO) 0.1 % (0-6); HEMOGLOBIN 16.7 g/dL (13.5-17.0); LYMPHOCYTES % (AUTO) 6.5 % (13-45); MEAN CORPUSCULAR HEMOGLOBIN 27.2 pg (27.0-33.4); MEAN CORPUSCULAR HGB CONC 33.4 g/dL (32.0-36.0); MEAN CORPUSCULAR VOLUME 81 fl (80-97); PLATELET COUNT 235 10^3/uL (150-450); RED BLOOD COUNT 6.15 10^6/uL (4.35-5.55); RED CELL DISTRIBUTION WIDTH 12.9 % (11.5-14.0); TOTAL CELLS COUNTED % (AUTO) 100 %
[2020-02-27 17:11] LABS: APPEARANCE,URINE CLEAR; BILIRUBIN,URINE NEGATIVE (NEGATIVE); COLOR,URINE YELLOW; GLUCOSE, URINE >=500 mg/dL (NEGATIVE); KETONES,URINE 20 mg/dL (NEGATIVE); LEUKOCYTE ESTERASE,URINE NEGATIVE (NEGATIVE); NITRITE,URINE NEGATIVE (NEGATIVE); PROTEIN,URINE >=500 mg/dL (NEGATIVE); URINE SPECIFIC GRAVITY 1.041; UROBILINOGEN,URINE NEGATIVE mg/dL (<2.0)
[2020-02-27 17:27] LABS: ALBUMIN 4.4 g/dL (3.5-5.0); ALKALINE PHOSPHATASE 132 U/L (38-126); ANION GAP 14 (5-19); ASPARTATE AMINO TRANSFERASE 17 U/L (17-59); BILIRUBIN,DIRECT 0.4 mg/dL (0.0-0.4); BILIRUBIN,TOTAL 0.7 mg/dL (0.2-1.3); BLOOD UREA NITROGEN 17 mg/dL (7-20); CALCIUM 9.7 mg/dL (8.4-10.2); CARBON DIOXIDE 26 mmol/L (22-30); CHLORIDE 98 mmol/L (98-107); CREATINE KINASE 27 U/L (55-170); GLUCOSE 283 mg/dL (75-110); TOTAL PROTEIN 7.5 g/dL (6.3-8.2)
[2020-02-27 17:39] LABS: CREATINE KINASE MB 0.78 ng/mL (<4.55)
[2020-02-27 17:42] LABS: TROPONIN I < 0.012 ng/mL
--- NOTE | 2020-02-27 17:44 | RADIOLOGY REPORT (SQ) ---
EXAM DESCRIPTION: CHEST SINGLE VIEW IMAGES COMPLETED DATE/TIME: 02/27/2020 4:59 pm REASON FOR STUDY: weakness COMPARISON: 02/11/2019 TECHNIQUE: Single frontal radiographic view of the chest acquired. NUMBER OF VIEWS: One view. LIMITATIONS: None. FINDINGS: LUNGS AND PLEURA: No pneumothorax. No consolidation or pleural effusion. MEDIASTINUM AND HILAR STRUCTURES: Stable. HEART AND VASCULAR STRUCTURES: Stable. BONES: No acute findings. HARDWARE: None in the chest. OTHER: No other significant finding. IMPRESSION: NO ACUTE FINDINGS. TECHNICAL DOCUMENTATION: JOB ID: [id number] [id number] 2010 [employer]- All Rights Reserved Reading location - IP/workstation name: [employer]
--- NOTE | 2020-02-27 22:06 | EKG REPORT ---
SEVERITY:- ABNORMAL ECG - SINUS RHYTHM LEFT AXIS DEVIATION CONSIDER ANTEROSEPTAL INFARCT : Confirmed by: Bonnie Krishnan 27-Feb-2020 22:05:33
[2020-02-27] MEDS ORDERED: METOCLOPRAMIDE HCL INJ/PF 10 MG/2 ML SDV IV ONE (22:30)
[2020-02-28] MEDS ORDERED: NORMAL SALINE 1000 ML 1,000 ML IV ONE (02:25)
--- NOTE | 2020-02-28 02:28 | ER Document Report ---
ED General - General Chief Complaint: Vomiting Stated Complaint: VOMITING/WEAKNESS Time Seen by Provider: 02/27/20 15:41 Primary Care Provider: MARQUES THRASHER MD [Primary Care Provider] - Follow up as needed Mode of Arrival: Wheelchair TRAVEL OUTSIDE OF THE [place] IN LAST 30 DAYS: No - HPI Notes: Patient is a 54-year-old male with history of hypertension and newly diagnosed diabetes who presents with vomiting that began earlier this morning. stat es he had an egg mix with peppers and sausage around 8:30 AM and began vomiting within an hour, right after taking his lisinopril. states for lunch he tried having soup and a PB&J sandwich but immediately threw it up. Patient has been able to keep down a small amount of water but did throw up genia tj here in the ED. Patient reports nausea, weakness, fatigue, and dizziness. He was seen in the ED the morning before (02/26/20) for feeling unwell and headache. He was found to have a blood pressure of 229/127 was given 20 mg of hydralazine IV and his blood pressure improved to 170/79. He was also found to have an elevated glucose of 300 and A1c of 10.0. Patient was prescribed Metformin but has not yet taken a dose. Patient denies shortness of breath, chest pain, abdominal pain, fever and hematemesis. - Related Data Allergies/Adverse Reactions: No Known Allergies Allergy (Verified 02/26/20 07:13) Past Medical History - General Information source: Patient - Social History Smoking Status: Unknown if Ever Smoked Chew tobacco use (# tins/day): No Drug Abuse: None Family History: Reviewed & Not Pertinent Patient has homicidal ideation: No - Past Medical History Cardiac Medical History: Reports: Hx Hypertension Renal/ Medical History: Denies: Hx Peritoneal Dialysis GI Medical History: Reports: Hx Diverticulitis Review of Systems - Review of Systems Constitutional: See HPI EENT: No symptoms reported Cardiovascular: No symptoms reported Respiratory: No symptoms reported Gastrointestinal: See HPI Genitourinary: No symptoms reported Male Genitourinary: No symptoms reported Musculoskeletal: No symptoms reported Skin: No symptoms reported Hematologic/Lymphatic: No symptoms reported Neurological/Psychological: See HPI Physical Exam - Vital signs Vitals: Temp Pulse Resp BP Pulse Ox 97.8 F 87 20 203/117 H 95 02/27/20 14:17 02/27/20 14:17 02/27/20 14:17 02/27/20 14:17 02/27/20 14:17 - Notes Notes: PHYSICAL EXAMINATION: VITALS: Vitals reviewed and within normal limits. GENERAL: Well-appearing, well-nourished and in no acute distress. HEAD: Atraumatic, normocephalic. EYES: Pupils equal, round, and reactive to light, extraocular movements intact, sclera anicteric, conjunctiva are normal. ENT: Nares patent. Moist mucous membranes. Oropharynx clear without exudates. NECK: Normal range of motion, supple without lymphadenopathy. LUNGS: Breath sounds clear to auscultation bilaterally and equal. No wheezes rales or rhonchi. HEART: Regular, rate, and rhythm without murmurs. ABDOMEN: Soft, nontender, normoactive bowel sounds. No guarding, no rebound. No masses appreciated. EXTREMITIES: Normal range of motion, no pitting or edema. No cyanosis. NEUROLOGICAL: No focal neurological deficits. Moves all extremities spontaneously and on command. PSYCH: Normal mood, normal affect. SKIN: Warm, Dry, normal turgor, no rashes or lesions noted. Course - Re-evaluation Re-evalutation: Patient is a 54-year-old male with history of hypertension and newly diagnosed diabetes who presents for multiple episodes of vomiting that occurred early yesterday morning. Patient had eggs and sausage for breakfast and began throwing up within the hour of eating. He has been able unable to keep down any food since and has only been able to tolerate water. He was seen in the ED the morning prior for severe hypertension and was found to have an elevated glucose and A1c. Patient has hypertensive with a BP of 176/88, vital signs are otherwise unremarkable. On exam, abdomen is soft, nontender with normoactive bowel sounds in all 4 quadrants. WBC is elevated at 14. Glucose and alk phos are elevated at 283 and 132. Troponin negative. Lipase normal at 114. UA shows elevated protein >500, elevated glucose >500, elevated ketones of 20 and a specific gravity of 1.041. Patient received Reglan, 2 doses of Zofran and 1L of normal saline. 02/28/20 05:31 patient tolerated PO challenge of crackers and juice with no nausea or vomiting. No concern for DKA as patient's glucose is 283 with small amount of ketones in urine but no anion gap or abnormal bicarb levels. Patient's blood pressure elevated at 176/88 but believe this is due to patient throwing up his lisinopril dose this morning. Patient was prescribed Metformin at his last ED visit but has yet to be able to fill the prescription. Patient's presentation and work-up consistent with gastritis. Patient will be discharged home with a prescription of Zofran. Instructions given for a bland diet and to follow-up with primary care promptly concerning his new diabetes diagnosis. Return precautions given. Patient understands and is in agreement with plan. 02/28/20 05:36 Patient's BP elevated at 198/104. Confirmed patient's lisinopril dose and given 20 mg of lisinopril. Patient does not want to stay to recheck his BP. As he threw up his normal dose yesterday and has not taken his dose this morning, and is asymptomatic I feel a safe for patient to be discharged. Return precautions concerning his blood pressure given. - Vital Signs Vital signs: Temp Pulse Resp BP Pulse Ox 97.8 F 86 16 198/104 H 96 02/28/20 05:34 02/28/20 05:34 02/28/20 05:34 02/28/20 05:34 02/28/20 05:34 - Laboratory Result Diagrams: 02/27/20 16:20 02/27/20 16:20 Laboratory results interpreted by me: 02/27/20 02/27/20 02/27/20 16:15 16:20 16:20 WBC 14.0 H RBC 6.15 H Lymph % (Auto) 6.5 L Absolute Neuts (auto) 12.6 H Seg Neutrophils % 90.0 H Glucose 283 H POC Glucose 238 H Alkaline Phosphatase 132 H Creatine Kinase 27 L Urine Protein Urine Glucose (UA) Urine Ketones 02/27/20 16:20 WBC RBC Lymph % (Auto) Absolute Neuts (auto) Seg Neutrophils % Glucose POC Glucose Alkaline Phosphatase Creatine Kinase Urine Protein >=500 H Urine Glucose (UA) >=500 H Urine Ketones 20 H - EKG Interpretation by Me Additional EKG results interpreted by me: Sinus rhythm with a rate of 86. QTc 440. Left axis deviation. No T wave inversions or ST segment changes in consecutive leads. Discharge - Discharge Clinical Impression: Hyperglycemia, Weakness Nausea and vomiting Qualifiers: Vomiting type: unspecified Vomiting Intractability: non-intractable Qualified Code(s): R11.2 - Nausea with vomiting, unspecified Gastritis Qualifiers: Gastritis type: unspecified gastritis Chronicity: acute Gastritis bleeding: without bleeding Qualified Code(s): K29.00 - Acute gastritis without bleeding Diabetes Qualifiers: Diabetes mellitus type: type 2 Diabetes mellitus usp insulin use: without usp use Diabetes mellitus complication status: without complication Qualified Code(s): E11.9 - Type 2 diabetes mellitus without complications Condition: Stable Disposition: HOME, SELF-CARE Additional Instructions: Gastritis You have an inflammation of the stomach called gastritis. This commonly causes upper abdominal pain, nausea, and vomiting. In severe cases, bleeding of the stomach lining can occur. Gastritis can be caused by bacteria or viruses, alcohol, or stomach-irritating drugs. Begin with sips of clear liquids. Take increasing amounts of fluid over the first 24 hours. Then start small amounts of bland foods (such as dry toast, applesauce, mashed potato). Gradually resume your usual diet. You should take antacids every two hours until the pain has subsided. Acid-suppressing drugs may be prescribed as well. Avoid aspirin, caffeine, tobacco, and alcohol. If the abdominal pain worsens, or there is evidence of major bleeding in the stomach (such as black, tarry stool, bloody or black vomit, or lightheadedness), you should return immediately. Call the doctor if you aren't improved in 24 to 36 hours. Prescriptions: Ondansetron [Zofran Odt 4 mg Tablet] 1 - 2 tab PO Q4HP PRN #15 tab.rapdis PRN Reason: Referrals: MARQUES THRASHER MD [Primary Care Provider] - Follow up as needed
[2020-02-28] MEDS ORDERED: ONDANSETRON ODT 4 MG TAB (6 TAB/ER DISP) PO PRN (05:31)
[2020-02-28 05:35] VITALS: BP 198/104
[2020-02-28] MEDS ORDERED: LISINOPRIL 10 MG TABLET PO ONE (05:36)
[2020-02-28] MEDS ORDERED: LISINOPRIL 10 MG TABLET ONE (05:43)
== END 2020-02-28 05:52 | disposition home or self-care (01) ==
LOC: ER 14:10
DX: K29.00 Acute gastritis without bleeding (principal); E11.9 Type 2 diabetes mellitus without complications; R11.2 Nausea with vomiting, unspecified; R53.1 Weakness; I10 Essential (primary) hypertension
CPT/HCPCS: 93005; 99285; 96360; 36415; 82553; 82962; 82550; 83690; 85025; 80053; 81001; 84484; 71045; 93010; S0119; J7030

== ENCOUNTER → 2020-04-09 | Outpatient (CLI) | payer OTHER ==
[2020-04-09 12:51] LABS: ABSOLUTE BASOPHILS # (AUTO) 0.1 10^3/uL (0.0-0.2); ABSOLUTE EOSINOPHILS # (AUTO) 0.2 10^3/uL (0.0-0.6); ABSOLUTE LYMPHOCYTES (AUTO) 1.8 10^3/uL (0.5-4.7); ABSOLUTE MONOCYTES (AUTO) 0.8 10^3/uL (0.1-1.4); ABSOLUTE NEUT (AUTO) 7.6 10^3/uL (1.7-8.2); BASOPHILS % (AUTO) 0.6 % (0-2); EOSINOPHILS % (AUTO) 1.6 % (0-6); HEMATOCRIT 37.1 % (37.9-51.0); HEMOGLOBIN 12.5 g/dL (13.5-17.0); LYMPHOCYTES % (AUTO) 17.3 % (13-45); MEAN CORPUSCULAR HEMOGLOBIN 27.5 pg (27.0-33.4); MEAN CORPUSCULAR HGB CONC 33.7 g/dL (32.0-36.0); MEAN CORPUSCULAR VOLUME 82 fl (80-97); MONOCYTES % (AUTO) 7.4 % (3-13); PLATELET COUNT 346 10^3/uL (150-450); RED BLOOD COUNT 4.54 10^6/uL (4.35-5.55); RED CELL DISTRIBUTION WIDTH 13.1 % (11.5-14.0); SEGMENTED NEUTROPHILS % (AUTO) 73.1 % (42-78); TOTAL CELLS COUNTED % (AUTO) 100 %; WHITE BLOOD COUNT 10.4 10^3/uL (4.0-10.5)
[2020-04-09 12:56] LABS: ALBUMIN 4.6 g/dL (3.5-5.0); ALKALINE PHOSPHATASE 122 U/L (38-126); ANION GAP 16 (5-19); ASPARTATE AMINO TRANSFERASE 39 U/L (17-59); BILIRUBIN,DIRECT 0.3 mg/dL (0.0-0.4); BILIRUBIN,TOTAL 1.2 mg/dL (0.2-1.3); BLOOD UREA NITROGEN 34 mg/dL (7-20); CARBON DIOXIDE 27 mmol/L (22-30); CHLORIDE 96 mmol/L (98-107); CHOLESTEROL 139.19 mg/dL (0-200); GLUCOSE 95 mg/dL (75-110); POTASSIUM 4.2 mmol/L (3.6-5.0); TOTAL PROTEIN 7.8 g/dL (6.3-8.2); TRIGLYCERIDES 129 mg/dL (<150)
[2020-04-09 13:07] LABS: DIRECT LDL 66 mg/dL (<100)
== END ==
LOC: OD 11:29
PROVIDERS: ATTEND Physician Assistant
DX: I10 Essential (primary) hypertension (principal); E11.65 Type 2 diabetes mellitus with hyperglycemia; E78.2 Mixed hyperlipidemia
CPT/HCPCS: 36415; 80053; 80061; 83036; 84443; 85025

== ENCOUNTER → 2020-04-22 | Outpatient (CLI) | payer OTHER ==
[2020-04-22 10:51] LABS: ANION GAP 14 (5-19); BLOOD UREA NITROGEN 17 mg/dL (7-20); CALCIUM 10.1 mg/dL (8.4-10.2); CARBON DIOXIDE 28 mmol/L (22-30); CHLORIDE 94 mmol/L (98-107); GLUCOSE 97 mg/dL (75-110); POTASSIUM 4.1 mmol/L (3.6-5.0)
== END ==
LOC: OD 09:10
PROVIDERS: ATTEND Physician Assistant
DX: N28.9 Disorder of kidney and ureter, unspecified (principal); R31.29 Other microscopic hematuria
CPT/HCPCS: 36415; 80048; 87086

== ENCOUNTER → 2020-05-12 | Outpatient (CLI) | payer OTHER ==
[2020-05-12 10:32] LABS: ANION GAP 12 (5-19); BLOOD UREA NITROGEN 20 mg/dL (7-20); CALCIUM 9.9 mg/dL (8.4-10.2); CARBON DIOXIDE 29 mmol/L (22-30); CHLORIDE 99 mmol/L (98-107); GLUCOSE 95 mg/dL (75-110); POTASSIUM 4.2 mmol/L (3.6-5.0)
== END ==
LOC: OD 09:25
PROVIDERS: ATTEND Physician Assistant
DX: N28.9 Disorder of kidney and ureter, unspecified (principal)
CPT/HCPCS: 36415; 80048

== ENCOUNTER → 2020-06-02 | Outpatient (CLI) | payer OTHER ==
[2020-06-02 12:28] LABS: ANION GAP 8 (5-19); BLOOD UREA NITROGEN 18 mg/dL (7-20); CALCIUM 9.5 mg/dL (8.4-10.2); CARBON DIOXIDE 30 mmol/L (22-30); CHLORIDE 99 mmol/L (98-107); GLUCOSE 111 mg/dL (75-110); POTASSIUM 3.9 mmol/L (3.6-5.0)
== END ==
LOC: OD 11:03
PROVIDERS: ATTEND Physician Assistant
DX: N28.9 Disorder of kidney and ureter, unspecified (principal)
CPT/HCPCS: 36415; 80048